=== PATIENT | female | born 1950 ===

== ENCOUNTER → 2021-12-01 | Outpatient (CLI) | payer MEDICARE, OTHER ==
[2021-12-01 13:04] LABS: BASO % 1 % (0-3); EOS % 2 % (0-3); HEMATOCRIT 35.7 % (36.0-47.0); LYMPH % 36 % (24-48); MEAN CORPUSCULAR HEMOGLOBIN 32 pg (25-35); MEAN CORPUSCULAR HGB CONC 34 g/dL (31-37); MEAN CORPUSCULAR VOLUME 94 fL (79-100); MONO # 0.2 x10^3/uL (0.0-1.1); MONO % 8 % (0-9); NEUT # 1.4 x10^3/uL (1.8-7.7); NEUT % 54 % (31-73); PLATELET COUNT 208 x10^3/uL (140-400); RED CELL DISTRIBUTION WIDTH 12.6 % (11.5-14.5); WHITE BLOOD COUNT 2.7 x10^3/uL (4.0-11.0)
[2021-12-01 13:24] LABS: CALCIUM 9.1 mg/dL (8.5-10.1); CREATININE 0.9 mg/dL (0.6-1.0); GFR 62.1; POTASSIUM 4.2 mmol/L (3.5-5.1)
[2021-12-01 13:30] LABS: ALBUMIN 3.7 g/dL (3.4-5.0); ALBUMIN/GLOBULIN RATIO 0.9 (1.0-1.7); TOTAL BILIRUBIN 0.4 mg/dL (0.2-1.0); TOTAL PROTEIN 7.6 g/dL (6.4-8.2)
[2021-12-02 14:15] LABS: COMMENT IMMUNOFIX SERUM Note: (.); IMMUNOGLOBULIN A 36 mg/dL (87-352); IMMUNOGLOBULIN G 1302 mg/dL (586-1602); IMMUNOGLOBULIN M 15 mg/dL (26-217)
[2021-12-02 16:16] LABS: ALPHA 1 0.2 g/dL (0.0-0.4); ALPHA 2 0.7 g/dL (0.4-1.0); BETA 0.9 g/dL (0.7-1.3); GAMMA 1.1 g/dL (0.4-1.8); KAPPA FREE 311.3 mg/L (3.3-19.4); KAPPA LAMBDA RATIO 42.64 (0.26-1.65); LAMBDA FREE 7.3 mg/L (5.7-26.3); SPEP AG RATIO 1.3 (0.7-1.7)
== END ==
LOC: ONCLAB 12:41
PROVIDERS: ATTEND Internal Medicine Hematology & Oncology
DX: Z85.3 Personal history of malignant neoplasm of breast (principal)
CPT/HCPCS: 36415; 80053; 82784; 83520; 84165; 85025; 86334